=== PATIENT | female | born 1995 | race Two or more races ===

== ENCOUNTER 2017-04-20 06:08 | Emergency (ER) | payer BC ==
[2017-04-20 07:07] VITALS: BP 112/70
[2017-04-20 07:10] LABS: microscopic required? YES; urine erythrocyte 3+ (NEGATIVE)
== END 2017-04-20 07:00 | disposition home or self-care (01) ==
LOC: ED 06:08
PROVIDERS: Specialist
DX: N39.0 Urinary tract infection, site not specified (principal)